=== PATIENT | male | born 1970 | race Caucasian/White ===

== ENCOUNTER → 2018-02-24 | Outpatient (CLI) | payer BC ==
--- NOTE | 2018-02-25 15:47 | MR ---
EXAMINATION TYPE: MR elbow LT wo con DATE OF EXAM: 02/24/2018 COMPARISON: Outside left elbow radiographs dated 01/27/2018 HISTORY: Left elbow pain subsequent to lifting injury TECHNIQUE: Multiplanar, multisequence images of the left elbow were acquired without intravenous cont rast per department protocol. FINDINGS: There is increased signal surrounding the insertional fibers of the biceps tendon with incr eased intrinsic signal and thickening although there is no discontinuity. There is suspicion for a sm all 8 mm intrasubstance tear that appears linear along the direction of the fibers of the biceps tend on just proximal to the insertion. There is no muscular retraction. The flexor and extensor compartments appear unremarkable although there is incomplete fat saturation on the subcutaneous soft tissues. There is no evidence of bone marrow edema to suggest occult fracture. Radiocapitellar articulation ap pears unremarkable. No joint effusion of the elbow. No focal fluid collection is seen. Articulations of the radiocapitellar joint, ulnar humeral joint, and proximal radial ulnar joint are maintained. Ulnar collateral ligament and palmar flexor tendon as well as radial collateral ligament and common extensor tendon appear unremarkable. Lateral collateral ligament appears intact. No eviden ce of bursitis. IMPRESSION: Moderate grade insertional biceps tendinosis with suspicion for linear 8 mm intrasubstance tear.
== END | disposition home or self-care (01) ==
LOC: RADMRIMAIN 08:37
PROVIDERS: ATTEND Orthopaedic Surgery
DX: M67.824 Other specified disorders of tendon, left elbow (principal); M25.522 Pain in left elbow

== ENCOUNTER → 2024-09-07 | Outpatient (CLI) | payer BC ==
--- NOTE | 2024-09-07 18:10 | MR ---
EXAMINATION TYPE: MR ankle LT wo con DATE OF EXAM: 09/07/2024 4:36 PM COMPARISON: None. 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 No Gadolinium given. IV Contrast: mL (None.) FINDINGS: LIGAMENTS AND TENDONS: Dilation of the synovium around the flexor digitorum longus and fibularis tommy vis tendons as it crosses into the ankle. The anterior talofibular ligament, calcaneofibular ligament , posterior talofibular ligament, tibiofibular ligaments, and deltoid ligament are intact. The anter ior compartment, posterior compartment, lateral compartment, and medial compartment tendons have a no rmal appearance. The portion of the plantar fascia seen is unremarkable. OSSEOUS STRUCTURES AND CARTILAGE: Prominent os trigonum. Subchondral cystic change along the lateral talar dome. Ganglion cyst near the talonavicular joint extending dorsally measuring 14 x 14 mm. Incre ased bony edema of the adjoining lateral cuneiform and cuboid bone. No evidence for displaced fractur e. Small joint effusion at the first digit tarsometatarsal joint. IMPRESSION: 1. Osteochondral defect involving the lateral talar dome. 2. Flexor digitorum and fibularis brevis tenosynovitis. No definitive evidence to suggest tendon or ligament injury. 3. Os trigonum is present. 4. Prominent ganglion cyst extending off the talonavicular joint measuring up to 14 x 14 mm and exte nding dorsally. 5. Moderate degeneration of the cuneocuboid joint. 6. Small first digit tarsometatarsal joint effusion.[facility], , 09/07/2024 6:08 PM
== END | disposition home or self-care (01) ==
LOC: RADMRIMAIN 15:24
PROVIDERS: ATTEND Orthopaedic Surgery Foot and Ankle Surgery
DX: M76.822 Posterior tibial tendinitis, left leg (principal); M67.472 Ganglion, left ankle and foot; M25.472 Effusion, left ankle; M65.972 Unspecified synovitis and tenosynovitis, left ankle and foot; M19.072 Primary osteoarthritis, left ankle and foot